=== PATIENT | female | born 1950 | race African-American/Black ===

== ENCOUNTER 2019-10-11 12:32 | Emergency (ER) | payer MEDICARE, OTHER ==
[~2019-10-11] VITALS: Ht 162.6 cm; Wt 77.1 kg
[~2019-10-11 12:32] MED LIST: ALBUTEROL SULF8.5 GM INH; AUGMENTIN 875-1 EACH PO; AZITHROMYCIN250 MG ORAL
[2019-10-11 12:53] VITALS: BP 139/84
--- NOTE | 2019-10-11 13:02 | NUR ---
ED Nurse Note: pt arrives with who states that pt has not been compliant with her medications for dm. pt is alert and oriented at this time. md schwab of pt.
[2019-10-11] MEDS ORDERED: GLIMEPIRIDE4 MG ORAL (13:11)
[2019-10-11] MEDS ORDERED: Insulin Human Regular 100units/ml 3ml SUBQ ONE (13:15)
--- NOTE | 2019-10-11 13:45 | NUR ---
ER DISCHARGE NOTE: 10 units Reg insulin administered and patient teaching given regarding hyperglycemia. Patient is cleared to be discharged per ERMD, pt is aox4, on room air, with stable vital signs. pt was given dc and prescription instructions, pt was able to verbalize understanding, pt id band removed. pt is able to ambulate with steady gait. pt took all belongings.
--- NOTE | 2019-10-11 14:34 | Emergency Room Report ---
History of Present Illness General Chief Complaint: General Complaint Source: Patient, Significant Other Present Illness HPI 69-year-old female presents ED for evaluation. Brought in by states that her Accu-Chek was high. Over 300 at home. History of diabetes. States that she sometimes forgets to take her medications. States she feels fine. Denies any dizziness or blurry vision. Denies nausea or vomiting. Also states she has been eating a lot of sweets lately because of the holidays. No other aggravating relieving factors. Denies any other associated symptoms Allergies: Coded Allergies: No Known Allergies (Unverified , 09/25/12) Patient History Past Medical History: DM, HTN, psych hx Now: No Nursing Documentation-PMH Hx Cardiac Problems: Yes - Hyperlipidemia Hx Hypertension: Yes Hx Asthma: Yes Hx Diabetes: Yes Hx Neurological Problems: Yes - Bipolar Review of Systems All Other Systems: negative except mentioned in HPI Physical Exam Vital Signs Date Time Temp Pulse Resp B/P (MAP) Pulse Ox O2 Delivery O2 Flow Rate FiO2 10/11/19 12:42 98.1 111 20 139/84 (102) 96 Room Air Sp02 EP Interpretation: reviewed, normal General Appearance: no apparent distress, alert, GCS 15, non-toxic Head: normocephalic, atraumatic Eyes: bilateral eye normal inspection, bilateral eye PERRL ENT: hearing grossly normal, normal pharynx, no angioedema, normal voice Neck: full range of motion, supple/symm/no masses Respiratory: chest non-tender, lungs clear, normal breath sounds, speaking full sentences Cardiovascular #1: regular rate, rhythm, no edema Cardiovascular #2: 2+ carotid (R), 2+ carotid (L), 2+ radial (R), 2+ radial (L) , 2+ dorsalis pedis (R), 2+ dorsalis pedis (L) Gastrointestinal: normal bowel sounds, non tender, soft, non-distended, no guarding, no rebound Rectal: deferred Genitourinary: normal inspection, no CVA tenderness Musculoskeletal: back normal, normal range of motion, gait/station normal, non- tender Neurologic: alert, motor strength/tone normal, oriented x3, sensory intact, responsive, speech normal Psychiatric: judgement/insight normal, memory normal, mood/affect normal, no suicidal/homicidal ideation Reflexes: 3+ bicep (R), 3+ bicep (L), 3+ tricep (R), 3+ tricep (L), 3+ knee (R) , 3+ knee (L) Lymphatic: no adenopathy Medical Decision Making Diagnostic Impression: Primary Impression: Hyperglycemia ER Course Hospital Course 69-year-old female presenting to ED with elevated BS. not compliant with her meds Differential diagnoses include: ETOH/drug ingestion, sepsis, DKA Clinical course Patient placed on stretcher. On engine monitor. After initial history, exam reveals middle-aged female in no acute distress. Physical exam unremarkable. Vitals stable. Patient appears well, nontoxic appearing. No distress. My suspicion for acute process such as DKA is low. Asymptomatic hyperglycemia. Given insulin in ED. Discussed findings with patient and . Will discharge to home with refill of her glimepiride. Encourage compliance with her medications. Safe for discharge for close outpatient follow-up. States she has a PMD i. I feel this is a highly complex case requiring extensive working including EKG/Rhythm strip, Xray/CT/US, Blood/urine lab work, repeat exams while in ED, and administration of strong opiates/narcotics for pain control, admission to hospital or close patient follow up. diagnosis - hyperglycemia Stable and discharged to home with prescription for glimeperide. Followup with PMD. Return to ED if symptoms recur or worsen Last Vital Signs Date Time Temp Pulse Resp B/P (MAP) Pulse Ox O2 Delivery O2 Flow Rate FiO2 10/11/19 13:53 98.0 83 20 97 Room Air Status: improved Disposition: HOME, SELF-CARE Condition: Stable Scripts Glimepiride* (GLIMEPIRIDE*) 4 Mg Tablet 4 MG ORAL BEFORE BREAKFAST, #30 TAB Prov: Chemo Osorio MD 10/11/19 Referrals: NON PHYSICIAN (PCP) Patient Instructions: Hyperglycemia, [id number] Chemo Osorio MD Oct 11, 2019 14:34
== END 2019-10-11 13:45 | disposition home or self-care (01) ==
LOC: EMR 13:40
DX: E11.65 Type 2 diabetes mellitus with hyperglycemia (principal); I10 Essential (primary) hypertension; E78.5 Hyperlipidemia, unspecified; F31.9 Bipolar disorder, unspecified
CPT/HCPCS: 82962; 96372; 99283; J1815